=== PATIENT | male | born 1980 | race Caucasian/White ===

== ENCOUNTER 2019-09-23 17:02 | Inpatient (IN) ==
[2019-09-23 17:36] LABS: ABS Lymphocytes 1.7 10^3/ul (1.0-4.8); ABS Monocytes 0.6 10^3/ul (0-0.8); Eosinophil % 0.3 %; Hematocrit 39 % (42-52); Hemoglobin 13.9 g/dL (14.0-18.0); Lymphocyte % 26.6 %; Mean Corpuscular HGB Conc 35 g/dL (31-36); Mean Corpuscular Hemoglobin 30 pg (27-31); Mean Corpuscular Volume 84 fL (80-94); Mean Platelet Volume 8.7 fL (7.4-10.4); Nucleated Red Blood Cells % 0.1; Platelet Count 193 10^3/uL (150-450); Red Blood Count 4.71 10^6 /uL (4.18-5.48); Red Cell Distribution Width 12 % (10-15); White Blood Count 6.3 10^3/uL (3.5-10.8)
[2019-09-23 17:52] LABS: ALT 15 U/L (7-52); AST 22 U/L (13-39); Albumin 4.4 g/dL (3.2-5.2); Albumin/Globulin Ratio 1.6 (1-3); Alkaline Phosphatase 42 U/L (34-104); Anion Gap 11 mmol/L (2-11); BUN/Creatinine Ratio 17.7 (8-20); Blood Urea Nitrogen 22 mg/dL (6-24); CO2 Carbon Dioxide 26 mmol/L (22-32); Calcium 9.4 mg/dL (8.6-10.3); Chloride 100 mmol/L (101-111); EGFR African American 77.7 (>60); EGFR Non-African American 64.2 (>60); Globulin 2.7 g/dL (2-4); Glucose 89 mg/dL (70-100); Potassium 3.6 mmol/L (3.5-5.0); Sodium 137 mmol/L (135-145); Total Protein 7.1 g/dL (6.4-8.9)
[2019-09-23 18:19] LABS: Acetaminophen < 15 mcg/mL; Alcohol, S < 10 mg/dL (<10); Salicylate < 2.50 mg/dL (<30)
[2019-09-23 18:33] LABS: TSH (Thyroid Stimulating Horm) 1.68 mcIU/mL (0.34-5.60)
[2019-09-23 19:03] LABS: HIV 4th Generation Nonreactive (Nonreactive)
[2019-09-23 20:37] LABS: Urine Appearance Clear; Urine Bilirubin Negative (Negative); Urine Blood Negative (Negative); Urine Color Yellow; Urine Glucose Negative (Negative); Urine Ketones 1+ (Negative); Urine Nitrite Negative (Negative); Urine Protein Negative (Negative); Urine Specific Gravity 1.026 (1.010-1.030); Urine Urobilinogen Negative (Negative)
[2019-09-23 20:51] LABS: Urine Benzodiazepine Screen None Detected (None Detect); Urine Opiates Screen None Detected (None Detect)
[2019-09-23] MEDS ORDERED: Al Hydrox/Mg Hydrox/Simet LIQ 30 ML UDC PO PRN (22:22)
[2019-09-24] MEDS: Vitamin THERAPEUTIC TAB PO SCH (09:10)
[2019-09-24] MEDS: Nicotine PATCH 21 MG/24 HR PATCH TRANSDERM SCH (13:09)
[2019-09-25 08:19] LABS: HDL Cholesterol 33.7 mg/dL
[2019-09-25] MEDS: Nicotine PATCH 21 MG/24 HR PATCH TRANSDERM SCH (09:02)
[2019-09-25] MEDS: Vitamin THERAPEUTIC TAB PO SCH (09:02)
[2019-09-25] MEDS: Nicotine GUM 4MG FRUIT FLAVOR PO PRN ×2 (09:03→16:56)
[2019-09-26] MEDS: Nicotine PATCH 21 MG/24 HR PATCH TRANSDERM SCH (10:24)
[2019-09-26] MEDS: Vitamin THERAPEUTIC TAB PO SCH (10:24)
[2019-09-27] MEDS: Nicotine PATCH 21 MG/24 HR PATCH TRANSDERM SCH (08:56)
[2019-09-27] MEDS: Vitamin THERAPEUTIC TAB PO SCH (08:56)
[2019-09-28] MEDS: Vitamin THERAPEUTIC TAB PO SCH (09:36)
[2019-09-28] MEDS: Nicotine PATCH 21 MG/24 HR PATCH TRANSDERM SCH (09:37)
[2019-09-29] MEDS: Nicotine PATCH 21 MG/24 HR PATCH TRANSDERM SCH (08:11)
[2019-09-29] MEDS: Vitamin THERAPEUTIC TAB PO SCH (08:12)
[2019-09-30] MEDS: Nicotine PATCH 21 MG/24 HR PATCH TRANSDERM SCH (09:09)
[2019-09-30] MEDS: Vitamin THERAPEUTIC TAB PO SCH (09:10)
[2019-10-01] MEDS: Vitamin THERAPEUTIC TAB PO SCH (10:20)
[2019-10-01] MEDS: Nicotine PATCH 21 MG/24 HR PATCH TRANSDERM SCH (10:21)
[2019-10-02] MEDS: Vitamin THERAPEUTIC TAB PO SCH (08:30)
[2019-10-02] MEDS: Nicotine PATCH 21 MG/24 HR PATCH TRANSDERM SCH (08:31)
[2019-10-03] MEDS: Nicotine PATCH 21 MG/24 HR PATCH TRANSDERM SCH (08:49)
[2019-10-03] MEDS: Vitamin THERAPEUTIC TAB PO SCH (08:50)
[2019-10-04] MEDS: Vitamin THERAPEUTIC TAB PO SCH (07:05)
[2019-10-04] MEDS: Nicotine PATCH 21 MG/24 HR PATCH TRANSDERM SCH (07:05)
[2019-10-05] MEDS: Vitamin THERAPEUTIC TAB PO SCH (09:01)
[2019-10-05] MEDS: Nicotine PATCH 21 MG/24 HR PATCH TRANSDERM SCH (09:01)
[2019-10-06] MEDS: Nicotine PATCH 21 MG/24 HR PATCH TRANSDERM SCH (09:24)
[2019-10-06] MEDS: Vitamin THERAPEUTIC TAB PO SCH (09:24)
[2019-10-07] MEDS: Vitamin THERAPEUTIC TAB PO SCH (07:59)
[2019-10-07] MEDS: Nicotine PATCH 21 MG/24 HR PATCH TRANSDERM SCH (07:59)
[2019-10-07 08:57] VITALS: BP 121/87
== END 2019-10-07 11:30 | disposition home or self-care (01) | DRG 751 ==
LOC: ED 17:02 → BSU 21:11
PROVIDERS: ADMIT Psychiatry & Neurology Psychiatry; ATTEND Psychiatry & Neurology Psychiatry

== ENCOUNTER 2021-02-21 16:05 | Inpatient (IN) ==
[2021-02-21] MEDS ORDERED: NS 0.9% 1000 ml BAG 1,000 ML IV ONE ×2 (16:12→22:36)
[2021-02-21 16:42] LABS: ABS Lymphocytes 1.8 10^3/ul (1.0-4.8); ABS Monocytes 0.6 10^3/ul (0-0.8); ABS Neutrophils 5.6 10^3/ul (1.5-7.7); Eosinophil % 0.5 %; Hematocrit 46 % (42-52); Hemoglobin 16.3 g/dL (14.0-18.0); Lymphocyte % 22.5 %; Mean Corpuscular HGB Conc 35 g/dL (31-36); Mean Corpuscular Hemoglobin 30 pg (27-31); Mean Corpuscular Volume 83 fL (80-94); Mean Platelet Volume 7.1 fL (7.4-10.4); Platelet Count 305 10^3/uL (150-450); Red Blood Count 5.52 10^6 /uL (4.18-5.48); Red Cell Distribution Width 13 % (10-15); White Blood Count 8.2 10^3/uL (3.5-10.8)
[2021-02-21 17:01] LABS: Troponin I 0.01 ng/mL (<0.03)
[2021-02-21 17:17] LABS: Rapid COVID-19 Molecular Undetected (Undetected)
[2021-02-21 17:25] LABS: Urine Appearance Clear; Urine Bilirubin Negative (Negative); Urine Blood Negative (Negative); Urine Color Straw; Urine Glucose Negative (Negative); Urine Ketones Negative (Negative); Urine Nitrite Negative (Negative); Urine Protein Negative (Negative); Urine Specific Gravity 1.003 (1.002-1.030); Urine Urobilinogen Negative (Negative)
[2021-02-21 17:26] LABS: ALT 30 U/L (7-52); AST 22 U/L (13-39); Albumin 4.5 g/dL (3.2-5.2); Albumin/Globulin Ratio 1.6 (1-3); Alkaline Phosphatase 52 U/L (35-149); Anion Gap 12 mmol/L (2-11); Blood Urea Nitrogen 9 mg/dL (6-24); CO2 Carbon Dioxide 23 mmol/L (22-32); Calcium 9.1 mg/dL (8.6-10.3); Chloride 100 mmol/L (101-111); Globulin 2.9 g/dL (2-4); Glucose 109 mg/dL (70-100); Magnesium 1.9 mg/dL (1.9-2.7); Potassium 3.9 mmol/L (3.5-5.0); Sodium 135 mmol/L (135-145); Total Protein 7.4 g/dL (6.4-8.9); eGFR CKD-EPI 65.5 (>60)
[2021-02-21 17:31] LABS: Urine Benzodiazepine Screen None Detected (None Detect); Urine Cannabinoids Screen Presumptive Positive (None Detect); Urine Opiates Screen None Detected (None Detect)
[2021-02-21 17:47] LABS: Alcohol, S < 13 mg/dL (<13)
[2021-02-21 17:48] LABS: Salicylate < 2.50 mg/dL (<30)
[2021-02-21 17:51] LABS: Acetaminophen < 15 mcg/mL
[2021-02-21 17:53] LABS: TSH Ultra Thyroid Stim Horm 3.44 mcIU/mL (0.34-5.60)
[2021-02-21] MEDS ORDERED: Ondansetron 4 mg VIAL 2 MG/ML 2 ml VIAL IV ONE (22:35)
[2021-02-21 22:56] LABS: Folate 5.04 ng/mL (5.90-24.80)
[2021-02-21 22:57] LABS: Vitamin B12 338 pg/mL (180-914)
[2021-02-22] MEDS ORDERED: Thiamine 100 MG/ML 2 ml VIAL 100 MG, Folic Acid IV 1 MG, Multiple Vitamin IV ADULT 10 M... IV ONE
[2021-02-22] MEDS ORDERED: Al Hydrox/Mg Hydrox/Simet LIQ 30 ML UDC PO PRN (00:50)
[2021-02-22] MEDS ORDERED: OLANzapine 5 mg TAB*ODT ONE (10:12)
[2021-02-22] MEDS: Vitamin THERAPEUTIC TAB PO SCH (10:28)
[2021-02-22] MEDS: OLANzapine 5 mg TAB*ODT PO SCH (20:05)
[2021-02-23 07:59] LABS: HDL Cholesterol 39.8 mg/dL
[2021-02-23] MEDS: Vitamin THERAPEUTIC TAB PO SCH (09:53)
[2021-02-23] MEDS: OLANzapine 5 mg TAB*ODT PO SCH (20:12)
[2021-02-24] MEDS: Vitamin THERAPEUTIC TAB PO SCH (08:21)
[2021-02-24 10:07] LABS: Albumin 4.3 g/dL (3.2-5.2); Albumin/Globulin Ratio 1.5 (1-3); Calcium 9.3 mg/dL (8.6-10.3); Globulin 2.8 g/dL (2-4); Potassium 4.8 mmol/L (3.5-5.0); Total Bilirubin 0.4 mg/dL (0.2-1.0); Total Protein 7.1 g/dL (6.4-8.9); eGFR CKD-EPI 83.2 (>60)
[2021-02-25] MEDS: Vitamin THERAPEUTIC TAB PO SCH (07:58)
[2021-02-25] MEDS ORDERED: Lorazepam PYXIS KEY PRN (20:23)
[2021-02-25] MEDS ORDERED: LORazepam IM 0-6 mg for WAM protocol IM SCH (21:00)
[2021-02-25] MEDS ORDERED: LORazepam PO 0-6 for WAM protocol PO SCH (21:00)
[2021-02-26] MEDS: Vitamin THERAPEUTIC TAB PO SCH (07:59)
[2021-02-27] MEDS ORDERED: OLANzapine 5 mg TAB*ODT PO PRN (08:29)
[2021-02-27] MEDS ORDERED: risperiDONE-M 1 mg Oradis TAB PO PRN (08:51)
[2021-02-27] MEDS: Vitamin THERAPEUTIC TAB PO SCH (09:51)
[2021-02-27] MEDS ORDERED: risperiDONE-M 1 mg Oradis TAB PO SCH (21:00)
[2021-02-27] MEDS ORDERED: OLANzapine 5 mg TAB*ODT PO SCH (21:00)
[2021-02-28] MEDS: risperiDONE-M 1 mg Oradis TAB PO SCH ×2 (08:19→20:23)
[2021-02-28] MEDS: Vitamin THERAPEUTIC TAB PO SCH (08:19)
[2021-03-01] MEDS: Vitamin THERAPEUTIC TAB PO SCH (08:49)
[2021-03-01] MEDS: risperiDONE-M 1 mg Oradis TAB PO SCH ×2 (08:49→20:16)
[2021-03-02] MEDS: Vitamin THERAPEUTIC TAB PO SCH (08:52)
[2021-03-02] MEDS ORDERED: risperiDONE-M 1 mg Oradis TAB PO SCH (09:00)
[2021-03-02] MEDS: risperiDONE-M 1 mg Oradis TAB PO SCH (20:05)
[2021-03-03] MEDS: Vitamin THERAPEUTIC TAB PO SCH (09:12)
[2021-03-04] MEDS: Vitamin THERAPEUTIC TAB PO SCH (09:14)
[2021-03-05] MEDS: Vitamin THERAPEUTIC TAB PO SCH (09:33)
[2021-03-06] MEDS: Vitamin THERAPEUTIC TAB PO SCH (08:52)
[2021-03-06 11:44] VITALS: BP 118/79
== END 2021-03-06 12:00 | disposition home or self-care (01) | DRG 750 ==
LOC: ED 16:05 → SUATTDRO 21:35 → BSU 21:35
PROVIDERS: ADMIT Internal Medicine; ATTEND Psychiatry & Neurology Psychiatry